=== PATIENT | female | born 1975 | race Two or more races ===

== ENCOUNTER 2016-11-09 15:39 | Emergency (ER) | payer SELFPAY ==
[2016-11-09 16:21] LABS: ABSOLUTE NEUTROPHIL COUNT 5.2 K/mm3 (1.8-7.7); BASO % 0.1 % (0.2-1.0); EOS # 0.1 (0.0-0.5); EOS % 0.9 % (0.9-2.9); HEMATOCRIT 35.2 % (37.0-47.0); HEMOGLOBIN 12.1 gm/l (12.0-16.0); IMM NEUT% 0.3 % (0-1); LYMPH # 1.7 (1.0-4.8); LYMPH % 22.1 % (15-45); MEAN CELL VOLUME 93.6 fl (81.0-99.0); MEAN CORPUSCULAR HEMOGLOBIN 32.2 pg (27.0-31.0); MEAN CORPUSCULAR HGB CONC 34.4 g/dl (33.0-37.0); MEAN PLATELET VOLUME 9.4 fl (7.4-10.4); MONO # 0.6 (0.0-0.8); MONO % 8.1 % (4-12); NEUT % 68.5 % (43-75); PLATELET COUNT 243 K/mm3 (130-400); RED CELL DISTRIBUTION WIDTH 12.2 % (11.5-14.5)
[2016-11-09 16:33] LABS: ALB/GLOB RATIO 1.5 (>1.0); ALBUMIN 4.2 gm/dL (3.5-5.7); CALCIUM 9.4 mg/dL (8.6-10.3)
[2016-11-09 17:13] LABS: SPECIFIC GRAVITY 1.015 (1.001-1.030); URINE BILIRUBIN NEGATIVE (NEGATIVE); URINE BLOOD 4+ (NEGATIVE); URINE GLUCOSE (UA) NEGATIVE (NEGATIVE); URINE LEUKOCYTE ESTERASE NEGATIVE (NEGATIVE); URINE NITRITE NEGATIVE (NEGATIVE); URINE PROTEIN 1+ (NEGATIVE); URINE UROBILINOGEN NORMAL (0-1 mg/dl)
[2016-11-09 17:44] LABS: URINE APPEARANCE TURBID; URINE COLOR DARK YELLOW
[2016-11-09 17:45] LABS: URINE AMORPHOUS SEDIMENT MANY; URINE BACTERIA 2+; URINE EPITHELIAL CELLS 0-2 /hpf; URINE RBC >100 /hpf
--- NOTE | 2016-11-09 18:15 | US ---
OB COMP <14 WKS, OB TRANSVAGINAL HISTORY: Positive at unknown gestational age with vaginal bleeding and left lower quadrant pain. COMPARISONS: None. FINDINGS: Transabdominal and transvaginal ultrasonography demonstrates a normally contoured uterus. The endometrium appears heterogeneous and prominent measuring up to 18 mm in AP diameter. No definitive intrauterine gestational sac is identified. There are a few scattered cystic foci identified along the periphery of the endometrium. The right ovary measures 4.3 x 2.5 x 4.5 cm. The left ovary measures 3.5 x 2.3 x 1.7 cm. Flow is seen within the right ovary. Flow is difficult to visualize within the left ovary, likely due to position. There is a hypoechoic focus seen within the maternal right ovary measuring 2.1 cm in size which may reflect a hemorrhagic or complicated corpus luteal cyst. A small amount of free fluid is seen within the pelvic cul-de-sac. IMPRESSION: 1. A prominent heterogeneous appearance of the endometrium measuring up to 18 mm in AP diameter. No definitive intrauterine gestational sac is visualized. Considerations include early intrauterine or extrauterine gestations or a demise. Recommend serial beta hCG levels and/or repeat ultrasound. 2. A hypoechoic 2.1 cm focus within the maternal right ovary which may reflect a complicated or hemorrhagic corpus luteal cyst. 3. A small amount of pelvic free fluid.
[2016-11-11 14:56] LABS: CHLAMYDIA BD Negative (Negative); N.GONORRHOEAE BD Negative (Negative); SOURCE Urine (())
== END 2016-11-09 19:49 | disposition home or self-care (01) ==
LOC: ED 15:39
DX: O20.0 Threatened abortion (principal); Z3A.01 Less than 8 weeks gestation of pregnancy